=== PATIENT | male | born 1960 ===

== ENCOUNTER 2017-12-08 23:52 | Inpatient (IN) ==
[2017-12-09 00:43] LABS: Basophils % 0.3 % (0.0-0.8); Eosinophils # 0.1 10*3/uL (0.0-0.87); Eosinophils % 1.9 % (0.00-10.9); Hematocrit 39.1 VOL% (42.0-52.0); Hemoglobin 12.7 GM/DL (14.0-18.0); Immature Granulocytes % 0.6 %; Immature Granulocytes Absolute 0.04 #; Lymphocytes # 1.5 10*3/uL (1.4-4.0); Lymphocytes % 22.8 % (21.2-54.2); Mean Corpuscular HGB Conc 32.5 GM/DL (32-36); Mean Corpuscular Hemoglobin 27 PG (27-34); Mean Corpuscular Volume 82.7 FL (87-102); Mean Platelet Volume 10.7 FL (9.6-12.0); Monocytes # 0.6 10*3/uL (0.11-0.8); Monocytes % 8.7 % (1.7-12.7); Neutrophils # 4.4 10*3/uL (1.4-7.4); Neutrophils % 65.7 % (38.7-73.9); Platelet Count 178 T/CUMM (130-400); Red Blood Count 4.73 MC/CUMM (3.8-5.5); Red Cell Distribution Width 13.2 % (9.3-17.3); White Blood Count 6.7 T/CUMM (4-12)
[2017-12-09] MEDS ORDERED: DILTIAZEM INJ 100 MG in SODIUM CHLORIDE 0.9% 100 ML IV SCH (01:00)
[2017-12-09 01:21] LABS: Alanine Aminotransferase 44 U/L (16-61); Albumin 3.2 G/DL (3.4-5.0); Alkaline Phosphatase 109 U/L (45-117); Aspartate Amino Transferase 27 U/L (0-37); Bilirubin,Total < 0.39 MG/DL (0.2-1.0); Blood Urea Nitrogen 11 MG/DL (7-18); Calcium 8.4 MG/DL (8.5-10.1); Glucose 132 MG/DL (74-106); Osmolality,Calculated 286.8 MOS/KG (273-304); Potassium 3.4 MMOL/L (3.5-5.1); Sodium 144 MMOL/L (136-145); Total Protein 6.3 G/DL (6.4-8.3)
[2017-12-09 01:23] LABS: Troponin I Only 0.093 NG/ML (0.00-0.045)
[2017-12-09] MEDS ORDERED: ONDANSETRON 4 MG/2 ML VIAL IV PRN (01:45)
[2017-12-09] MEDS ORDERED: GLUCAGON 1 MG VIAL IM PRN (01:45)
[2017-12-09] MEDS ORDERED: ZALEPLON 5 MG CAPSULE PO PRN (01:45)
[2017-12-09] MEDS ORDERED: MORPHINE 4 MG/1 ML VIAL IV PRN (01:45)
[2017-12-09] MEDS ORDERED: NICOTINE 21 MG/24 HR PATCH TRANSDERM PRN (01:45)
[2017-12-09] MEDS ORDERED: SODIUM CHLORIDE 0.9% 1,000 ML IV SCH (01:45)
[2017-12-09] MEDS ORDERED: DEXTROSE 50% 25 GM/50 ML VIAL IV PRN (01:45)
[2017-12-09] MEDS ORDERED: LORazepam 2 MG/1 ML VIAL IV PRN (01:45)
[2017-12-09] MEDS ORDERED: ENOXAPARIN 80 MG/0.8 ML SYRINGE SUBCUT SCH (02:00)
[2017-12-09] MEDS: POTASSIUM CHLORIDE 20 MEQ TABLET PO PRN ×4 (02:47→10:05)
[2017-12-09] MEDS: PHENYTOIN ER 100 MG CAPSULE PO SCH ×2 (02:47→10:03)
[2017-12-09 06:12] LABS: Risk Ratio 3.45; Thyroid Stimulating Hormone 0.978 uIU/ml (0.358-3.74); VLDL CHOLESTEROL 70.2 MG/DL
[2017-12-09] MEDS ORDERED: DOCUSATE SODIUM 100 MG CAPSULE PO SCH (09:00)
[2017-12-09] MEDS ORDERED: hydroCHLOROthiazide 25 MG TABLET PO SCH (09:00)
[2017-12-09] MEDS ORDERED: PANTOPRAZOLE 40 MG TABLET PO SCH (09:00)
[2017-12-09] MEDS ORDERED: ASPIRIN EC 81 MG TABLET PO SCH (10:00)
[2017-12-09] MEDS ORDERED: DILTIAZEM CD 180 MG CAPSULE PO SCH (10:00)
[2017-12-09] MEDS: INSULIN REGULAR 100 UNIT/ML SUBCUT SCH ×2 (10:10→12:36)
[2017-12-09 11:42] VITALS: BP 134/89
[2017-12-09] MEDS ORDERED: APIXABAN 5 MG TABLET PO SCH (21:00)
[2017-12-09] MEDS ORDERED: SIMVASTATIN 10 MG TABLET PO SCH (21:00)
== END 2017-12-09 14:52 | disposition home or self-care (01) | DRG 309 ==
LOC: EDBD → EDUNIT# → N.ED 23:52 → N.EDINP 12-09 00:32 → SUATTDRO 12-09 00:32 → N.TELES 12-09 01:30
PROVIDERS: ADMIT Internal Medicine; ATTEND Family Medicine

== ENCOUNTER 2019-09-20 04:52 | Observation (INO) ==
[2019-09-20] MEDS ORDERED: METOPROLOL TARTRATE 5 MG/5 ML VIAL IV ONE (05:23)
[2019-09-20] MEDS ORDERED: METOPROLOL TARTRATE 5 MG/5 ML VIAL IV STA (05:25)
[2019-09-20] MEDS ORDERED: SODIUM CHLORIDE 0.9% 1,000 ML IV STA (05:25)
[2019-09-20 05:45] LABS: Basophils % 0.6 % (0.0-0.8); Eosinophils # 0.2 10*3/uL (0.0-0.87); Eosinophils % 4.6 % (0.00-10.9); Hematocrit 40.5 VOL% (42.0-52.0); Immature Granulocytes % 0.2 %; Immature Granulocytes Absolute 0.01 #; Lymphocytes # 2.2 10*3/uL (1.4-4.0); Lymphocytes % 41.2 % (21.2-54.2); Mean Corpuscular HGB Conc 32.1 GM/DL (32-36); Mean Corpuscular Volume 82.5 FL (87-102); Mean Platelet Volume 10.8 FL (9.6-12.0); Neutrophils % 42.4 % (38.7-73.9); Platelet Count 201 T/CUMM (130-400); Red Blood Count 4.91 MC/CUMM (3.8-5.5); Red Cell Distribution Width 14.1 % (9.3-17.3); White Blood Count 5.3 T/CUMM (4-12)
[2019-09-20 05:51] LABS: Calcium 7.8 MG/DL (8.5-10.1); Osmolality,Calculated 281.3 MOS/KG (273-304)
[2019-09-20] MEDS ORDERED: DILTIAZEM 50 MG/10 ML VIAL IV STA (06:03)
[2019-09-20] MEDS: dilTIAZem Drip 125 MG/125 ML PREMIX IV SCH ×2 (06:12→13:18)
[2019-09-20 06:44] LABS: Thyroid Stimulating Hormone 1.35 uIU/ml (0.358-3.74)
[2019-09-20 09:06] LABS: Barbiturates Screen,Urine Negative (Negative); Benzodiazepines Screen,Urine Negative (Negative); Cannabinoid Screen,Urine Negative (Negative); Opiate Screen,Urine Negative (Negative); Phencyclidine Screen,Urine Negative (Negative)
[2019-09-20] MEDS ORDERED: ACETAMINOPHEN 325 MG TABLET PO PRN (11:11)
[2019-09-20] MEDS ORDERED: ONDANSETRON 4 MG/2 ML VIAL IV PRN (11:11)
[2019-09-20] MEDS ORDERED: PROMETHAZINE 25 MG/1 ML VIAL IM PRN (11:11)
[2019-09-20] MEDS ORDERED: ENOXAPARIN 80 MG/0.8 ML SYRINGE SUBCUT SCH (11:30)
[2019-09-20] MEDS ORDERED: PHENYTOIN ER 100 MG CAPSULE PO SCH (11:30)
[2019-09-20] MEDS ORDERED: ENOXAPARIN 80 MG/0.8 ML SYRINGE SUBCUT ONE (13:00)
[2019-09-20] MEDS: PANTOPRAZOLE 40 MG TABLET PO SCH (13:29)
[2019-09-20] MEDS: METOPROLOL TARTRATE 50 MG TABLET PO SCH ×2 (13:29→20:59)
[2019-09-20] MEDS: DILTIAZEM 60 MG TABLET PO SCH ×2 (14:49→20:58)
[2019-09-20] MEDS: NICOTINE 21 MG/24 HR PATCH TRANSDERM SCH (17:01)
[2019-09-20] MEDS: levETIRAcetam 500 MG TABLET PO SCH (21:06)
[2019-09-21 06:05] LABS: Basophils % 0.8 % (0.0-0.8); Eosinophils # 0.2 10*3/uL (0.0-0.87); Eosinophils % 5.8 % (0.00-10.9); Hemoglobin 12.4 GM/DL (14.0-18.0); Immature Granulocytes % 0.5 %; Immature Granulocytes Absolute 0.02 #; Lymphocytes # 1.6 10*3/uL (1.4-4.0); Lymphocytes % 42.2 % (21.2-54.2); Mean Corpuscular HGB Conc 31.8 GM/DL (32-36); Mean Corpuscular Volume 82.8 FL (87-102); Mean Platelet Volume 10.6 FL (9.6-12.0); Monocytes % 10.8 % (1.7-12.7); Neutrophils % 39.9 % (38.7-73.9); Platelet Count 184 T/CUMM (130-400); Red Blood Count 4.71 MC/CUMM (3.8-5.5); Red Cell Distribution Width 14.4 % (9.3-17.3); White Blood Count 3.8 T/CUMM (4-12)
[2019-09-21 06:25] LABS: Calcium 8.4 MG/DL (8.5-10.1); Osmolality,Calculated 281.3 MOS/KG (273-304)
[2019-09-21] MEDS: dilTIAZem Drip 125 MG/125 ML PREMIX IV SCH (08:35)
[2019-09-21] MEDS ORDERED: APIXABAN 5 MG TABLET PO SCH (09:00)
[2019-09-21] MEDS: PANTOPRAZOLE 40 MG TABLET PO SCH (10:29)
[2019-09-21] MEDS: levETIRAcetam 500 MG TABLET PO SCH (10:30)
[2019-09-21] MEDS: METOPROLOL TARTRATE 50 MG TABLET PO SCH (10:30)
[2019-09-21] MEDS: NICOTINE 21 MG/24 HR PATCH TRANSDERM SCH (10:30)
[2019-09-21 12:03] VITALS: BP 149/101
== END 2019-09-21 12:59 | disposition home or self-care (01) ==
LOC: EDBD → EDUNIT# → N.ED 04:52 → N.EDINP 04:52 → N.TELES 12:09
PROVIDERS: ADMIT Family Medicine; ATTEND Family Medicine